=== PATIENT | female | born 1955 | race American Indian/Alaskan Native ===

== ENCOUNTER 2017-08-07 14:33 | Outpatient (CLI) | payer MEDICAID ==
--- NOTE | 2017-08-07 15:45 | XRay Report ---
XRAY BILATERAL KNEE THREE VIEWS EACH: 08/07/17 14:33:00 CLINICAL: Bilateral knee pain. FINDINGS: Right: Moderate osteopenia. Severe osteoarthritis of the medial joint with near-complete loss of joint space and large medial osteophytes. Widening of the lateral joint. Large patellofemoral osteophytes. No fracture or dislocation. The patella appears more medial than normal on the AP and oblique views but is in normal position on the sunrise view. No joint effusion. Normal soft tissues. Left: Moderate osteopenia. Severe osteoarthritis of the medial joint with loss of the joint space and irregularity of the cortical margin of the medial femoral condyle and medial tibial plateau. Large medial osteophytes. Widening of the lateral joint space with small osteophytes. Large patellofemoral osteophytes. No fracture or dislocation. No joint effusion.Medial soft tissue swelling of the distal thigh.. IMPRESSION: Severe bilateral osteoarthritis with greater involvement of the medial knee joint and left worse than right.
== END 2017-08-07 14:34 | disposition home or self-care (01) ==
LOC: SPVIMAG 14:33
PROVIDERS: ATTEND Orthopaedic Surgery Sports Medicine
DX: M17.0 Bilateral primary osteoarthritis of knee (principal)

== ENCOUNTER 2017-08-17 00:16 | Emergency (ER) | payer MEDICAID ==
[2017-08-17 02:29] LABS: Bilirubin,Urine NEG (Negative); Blood,Urine SM (Negative); Color,Urine Straw (Yellow); Mucus,Urine FEW /HPF; Protein,Urine <15 mg/dL mg/dL (Negative); Urobilinogen,Urine < 2.0 mg/dL (<2.0)
[2017-08-17 02:40] LABS: Amphetamine Screen,Urine PRESUMPTIVE NEGATIVE; Benzodiazepines Screen,Urine PRESUMPTIVE NEGATIVE; Cannabinoid Screen,Urine PRESUMPTIVE NEGATIVE; Cocaine Screen,Urine PRESUMPTIVE NEGATIVE; Methadone Screen,Urine PRESUMPTIVE NEGATIVE; Opiate Screen,Urine PRESUMPTIVE NEGATIVE
[2017-08-17 02:55] LABS: Basophils % (Auto) 0.5 % (0.0-1.8); Eosinophils # (Auto) 0.1 K/mm3 (0.0-0.4); Eosinophils % (Auto) 1.5 % (0.0-4.3); Hematocrit 38.9 % (30.3-42.9); Hemoglobin 13.1 gm/dl (10.1-14.3); Lymphocytes # (Auto) 1.7 K/mm3 (1.2-5.4); Mean Corpuscular HGB Conc 34 % (30-34); Mean Corpuscular Hemoglobin 31 pg (28-32); Mean Corpuscular Volume 92 fl (79-97); Monocytes # (Auto) 0.5 K/mm3 (0.0-0.8); Monocytes % (Auto) 9.4 % (0.0-7.3); Platelet Count 240 K/mm3 (140-440); Red Blood Count 4.24 M/mm3 (3.65-5.03); Red Cell Distribution Width 14.8 % (13.2-15.2)
[2017-08-17 03:06] LABS: BUN/Creatinine Ratio 14; Blood Urea Nitrogen 10 mg/dL (7-17); Calcium 9.8 mg/dL (8.4-10.2); Hemolysis Index 6
[2017-08-17] MEDS ORDERED: NORVASC PO ONE (06:26)
--- NOTE | 2017-08-17 06:26 | Emergency Department Report ---
ED General Adult HPI - General Chief complaint: Psych Stated complaint: PSYCH EVALUATION Time Seen by Provider: 08/17/17 06:07 Source: patient Mode of arrival: Ambulatory Limitations: No Limitations - History of Present Illness Initial comments: Patient presents to emergency department for psychiatric evaluation. Patient has a history of schizophrenia and states the voices are no worse than normal. She also states that she is very depressed. She denies any suicidal or homicidal ideation. Patient states that nothing seems to make her symptoms better or worse and she cannot tell me the time frame of her symptoms. -: Gradual Severity scale (0 -10): 0 Improves with: none Worsens with: none Associated Symptoms: denies other symptoms, other (none) - Related Data Home Medications Medication Instructions Recorded Confirmed Last Taken Diclofenac Dr [Voltaresarika Dr] 75 mg PO BID 09/22/14 09/22/14 Unknown Famotidine [Pepcid] 40 mg PO QHS 09/22/14 09/22/14 Unknown Glimepiride [Amaryl] 4 mg PO QAM 09/22/14 09/22/14 Unknown Haloperidol Decanoate [Haldol 100 mg IM QMONTH 09/22/14 09/22/14 Unknown Decanoate] Haloperidol [Haldol] 2 mg PO QHS 09/22/14 09/22/14 Unknown Lisinopril [Zestril] 20 mg PO QDAY 09/22/14 09/22/14 Unknown OXcarbazepine [Oxtellar Xr] 600 mg PO BID 09/22/14 09/22/14 Unknown Paroxetine HCl [PARoxetine] 20 mg PO QAM 09/22/14 09/22/14 Unknown Pioglitazone HCl 45 mg PO QDAY 09/22/14 09/22/14 Unknown Pravastatin [Pravachol] 40 mg PO QHS 09/22/14 09/22/14 Unknown Triamter/Hctz 37.5-25 mg 1 tab PO QAM 09/22/14 09/22/14 Unknown [Maxzide-25] diphenhydrAMINE [Benadryl] 50 mg PO QHS PRN 09/22/14 09/22/14 Unknown metFORMIN [Glucophage] 500 mg PO BID 09/22/14 09/22/14 Unknown risperiDONE [RisperDAL] 2 mg PO BID 09/22/14 09/22/14 Unknown Allergies Allergy/AdvReac Type Severity Reaction Status Date / Time No Known Allergies Allergy Verified 07/23/14 13:24 ED Review of Systems ROS: Stated complaint: PSYCH EVALUATION Other details as noted in HPI Comment: All other systems reviewed and negative Constitutional: denies: chills, fever Eyes: denies: eye pain, eye discharge, vision change ENT: denies: ear pain, throat pain Respiratory: denies: cough, shortness of breath, wheezing Cardiovascular: denies: chest pain, palpitations Endocrine: no symptoms reported Gastrointestinal: denies: abdominal pain, nausea, diarrhea Genitourinary: denies: urgency, dysuria, discharge Musculoskeletal: denies: back pain, joint swelling, arthralgia Skin: denies: rash, lesions Neurological: denies: headache, weakness, paresthesias Psychiatric: depression, auditory hallucinations. denies: anxiety Hematological/Lymphatic: denies: easy bleeding, easy bruising ED Past Medical Hx - Past Medical History Hx Hypertension: Yes Hx Diabetes: Yes Hx Psychiatric Treatment: Yes ([facility], Bipolar, Schizophrenia) - Surgical History Additional Surgical History: neck surgery. left eye surgery-cataract - Social History Smoking Status: Current Every Day Smoker Substance Use Type: None - Medications Home Medications: Home Medications Medication Instructions Recorded Confirmed Last Taken Type Diclofenac Dr [Lu Sidhu] 75 mg PO BID 09/22/14 09/22/14 Unknown History Famotidine [Pepcid] 40 mg PO QHS 09/22/14 09/22/14 Unknown History Glimepiride [Amaryl] 4 mg PO QAM 09/22/14 09/22/14 Unknown History Haloperidol Decanoate [Haldol 100 mg IM QMONTH 09/22/14 09/22/14 Unknown History Decanoate] Haloperidol [Haldol] 2 mg PO QHS 09/22/14 09/22/14 Unknown History Lisinopril [Zestril] 20 mg PO QDAY 09/22/14 09/22/14 Unknown History OXcarbazepine [Oxtellar Xr] 600 mg PO BID 09/22/14 09/22/14 Unknown History Paroxetine HCl [PARoxetine] 20 mg PO QAM 09/22/14 09/22/14 Unknown History Pioglitazone HCl 45 mg PO QDAY 09/22/14 09/22/14 Unknown History Pravastatin [Pravachol] 40 mg PO QHS 09/22/14 09/22/14 Unknown History Triamter/Hctz 37.5-25 mg 1 tab PO QAM 09/22/14 09/22/14 Unknown History [Maxzide-25] diphenhydrAMINE [Benadryl] 50 mg PO QHS PRN 09/22/14 09/22/14 Unknown History metFORMIN [Glucophage] 500 mg PO BID 09/22/14 09/22/14 Unknown History risperiDONE [RisperDAL] 2 mg PO BID 09/22/14 09/22/14 Unknown History ED Physical Exam - General Limitations: No Limitations General appearance: alert, in no apparent distress - Head Head exam: Present: atraumatic, normocephalic - Eye Eye exam: Present: normal appearance - ENT ENT exam: Present: mucous membranes moist - Neck Neck exam: Present: normal inspection - Respiratory Respiratory exam: Present: normal lung sounds bilaterally. Absent: respiratory distress - Cardiovascular Cardiovascular Exam: Present: regular rate, normal rhythm. Absent: systolic murmur, diastolic murmur, rubs, gallop - GI/Abdominal GI/Abdominal exam: Present: soft, normal bowel sounds - Extremities Exam Extremities exam: Present: normal inspection - Back Exam Back exam: Present: normal inspection - Neurological Exam Neurological exam: Present: alert, oriented X3 - Psychiatric Psychiatric exam: Present: normal affect, normal mood. Absent: homicidal ideation, suicidal ideation - Skin Skin exam: Present: warm, dry, intact, normal color. Absent: rash ED Course Vital Signs 08/17/17 01:48 Temperature 97.9 F Pulse Rate 60 Respiratory 20 Rate Blood Pressure 173/83 O2 Sat by Pulse 97 Oximetry ED Medical Decision Making - Lab Data Result diagrams: 08/17/17 02:25 08/17/17 02:25 - Medical Decision Making Patient evaluated by mental health and consistent with my evaluation they do not feel the patient is a harm to herself or others. After evaluation the patient is mostly concerned that her therapies are in [place], [place] and she lives in [place], [place] and would like her therapies closer to her home. Critical care attestation.: If time is entered above; I have spent that time in minutes in the direct care of this critically ill patient, excluding procedure time. ED Disposition Clinical Impression: Depression Disposition: DC-01 TO HOME OR SELFCARE Is pt being admited?: No Does the pt Need Aspirin: No Condition: Stable Instructions: Depression (ED) Additional Instructions: Return if symptoms become worse or if there are any homicidal or suicidal thoughts Referrals: THAD ROSS MD [Primary Care Provider] - 3-5 Days
[2017-08-17 10:44] VITALS: BP 157/89
== END 2017-08-17 13:04 | disposition home or self-care (01) ==
LOC: ED 00:16
DX: F32.9 Major depressive disorder, single episode, unspecified (principal); F20.9 Schizophrenia, unspecified; E11.9 Type 2 diabetes mellitus without complications; F17.200 Nicotine dependence, unspecified, uncomplicated
CPT/HCPCS: 36415; 80048; 80307; 81001; 85025; 99283; G0480; 80320